=== PATIENT | male | born 1960 | race Caucasian/White ===

== ENCOUNTER → 2016-09-21 | Day surgery (SDC) | payer BC ==
[~2016-09-21] MED LIST: NORVASC PO; TOPROL XL50 MG PO
--- NOTE | ~2016-09-21 | OR ---
Unit #: [id number] #: [id number] Patient: LENCHO ASHBY [id number] [address] [id number] [id number] MR#: [id number] NAME: LENCHO ASHBY ROOM: Date of Procedure: 09/20/2016 Admission Date: 09/21/2016 Surgeon: Ulices Waite M.D. : 1960 Attending Physician: Ulices Waite M.D. Primary Care Physician: Jevon Tello M.D. OPERATIVE REPORT PREOPERATIVE DIAGNOSIS An enlarging, raised, irregular skin lesion, right shoulder. POSTOPERATIVE DIAGNOSIS An enlarging, raised, irregular skin lesion, right shoulder. PROCEDURE PERFORMED Excision of enlarging, raised, irregular skin lesion, right shoulder, 3 x 2 cm with layered closure. ANESTHESIA Versed 4 mg, Demerol 50 mg each IV push in divided dosages with continuous cardiac and O2 saturation monitoring, 1% Xylocaine plain local anesthesia. FINDINGS The area was excised and sent to pathology with negative margins circumferentially. SPECIMENS Sent to pathology. COMPLICATIONS None apparent. CONDITION The patient tolerated the procedure well. INDICATIONS FOR PROCEDURE The patient is a 55-year-old white male, who developed a raised, irregular skin lesion that has enlarged in the right anterior shoulder area. He presents at this time for excision for pathologic diagnosis and treatment. DESCRIPTION OF PROCEDURE After obtaining informed consent as well as receiving preoperative antibiotics, the patient was brought to the operating room and after adequate conscious sedation was obtained with Versed and Demerol, had the area prepped and draped in a sterile fashion. It was anesthetized with 1% Xylocaine plain local anesthesia. An elliptical incision was made in the direction of the skin lines with a negative margin circumferentially visually. It was taken down through the skin with a knife and through the subdermal tissues and subcutaneous tissues with electrocautery with good hemostasis. It was sent to pathology. The wound was irrigated. Unit #: [id number] #: [id number] Patient: LENCHO ASHBY Hemostasis was obtained with the Bovie. The deep tissues were reapproximated with interrupted 3-0 Vicryl suture. The skin was closed with interrupted 3-0 nylon vertical mattress sutures. A piece of Xeroform gauze was placed over the incision followed by dry dressing and a Tegaderm dressing. Needle counts, sponge counts, and instrument counts were all correct as reported by the scrub nurse x2. The patient went from the operating room to recovery room in stable condition. Dictated by... Maximilian Rodriguez/ximena TD: 09/22/2016 02:11 JOB #: [id number] [facility] OPERATIVE REPORT Page 1 of 1 X Ulices Waite MD X PROCEDURE OPERATIVE NOTE
== END | disposition home or self-care (01) ==
LOC: CSUR 08:54
DX: C44.622 Squamous cell carcinoma of skin of right upper limb, including shoulder (principal); L85.8 Other specified epidermal thickening; I10 Essential (primary) hypertension; Z79.899 Other long term (current) drug therapy
CPT/HCPCS: 88305; J0690; J2175; J2250; J2310